=== PATIENT | male | born 1965 | race Caucasian/White ===

== ENCOUNTER 2024-07-02 08:36 | Outpatient (CLI) | payer OTHER, SELFPAY ==
--- NOTE | 2024-07-02 08:39 | CT_ITS ---
WS: [id number] LDCT LUNG CANCER SCREENING HISTORY: HX OF TOBACCO USE TECHNIQUE: Axial imaging performed from the apices to 1 cm below the costophrenic angles. Coronal and sagittal reformats are submitted with axial MIP series. All CT scans at [facility] use at least one of these dose optimization techniques: automated exposure control; mA and/or kV adjustment per patient size (includes targeted exams where dose is matched to clinical indication); or iterativ e reconstruction. DLP: 88.32 mGy.cm DIvol: Mean CTDIvol: 2.00 (mGy) COMPARISON: None available. Diagnostic quality: Satisfactory Lungs: Moderate centrilobular changes. Mild peripheral interstitial thickening throughout both lungs. There are a few very small micronodules in the periphery. No mass or pulmonary nodule. No endobronch ial lesions. Heart: Normal size heart with no pericardial effusion.. Other findings: Mild atherosclerosis aorta. Normal size pulmonary artery. Small hiatal hernia. No adr enal mass. CT/CT lung screening [id number] IMPRESSION: LUNG-RADS: 2-Benign Appearance or Behavior FOLLOW UP: 12 Month: Continue annual screening with LDCT OTHER FINDINGS (S MODIFIER): None.
== END 2024-07-02 08:37 | disposition home or self-care (01) ==
LOC: RAD 08:38
PROVIDERS: PCP Family Medicine; Visit Provider Family Medicine
DX: Z12.2 Encounter for screening for malignant neoplasm of respiratory organs (principal); Z87.891 Personal history of nicotine dependence; R91.8 Other nonspecific abnormal finding of lung field; I70.0 Atherosclerosis of aorta; K44.9 Diaphragmatic hernia without obstruction or gangrene
CPT/HCPCS: 71271